=== PATIENT | male | born 1970 | race Caucasian/White ===

== ENCOUNTER 2018-06-18 03:20 | Inpatient (IN) | payer BC ==
[2018-06-18] MEDS ORDERED: Enoxaparin 150 MG/1 ML Syringe SUBCUT ONE (03:32)
[2018-06-18] MEDS ORDERED: Diltiazem 25 MG/5 ML SDV IVPUSH ONE ×3 (03:32→08:34)
[2018-06-18] MEDS ORDERED: Enoxaparin 150 MG/1 ML Syringe ONE (03:35)
--- NOTE | 2018-06-18 03:36 | EDM.PDOC ---
ED HPI GENERAL MEDICAL PROBLEM - General Chief Complaint: Cardiovascular Problem Stated Complaint: IRREGULAR HEARTBEAT Time Seen by Provider: 06/18/18 03:35 - History of Present Illness INITIAL COMMENTS - FREE TEXT/NARRATIVE: HISTORY AND PHYSICAL: History of present illness: Patient's 48-year-old white male with history of hypertension and presents with a concern of palpitations he denies chest pain shores breath nausea vomiting fever chills he states started approximately midnight Review of systems: As per history of present illness and below otherwise all systems reviewed and negative. Past medical history: As per history of present illness and as reviewed below otherwise noncontributory. Surgical history: As per history of present illness and as reviewed below otherwise noncontributory. Social history: No reported history of drug or alcohol abuse. Family history: As per history of present illness and as reviewed below otherwise noncontributory. Physical exam: HEENT: Atraumatic, normocephalic, pupils reactive, negative for conjunctival pallor or scleral icterus, mucous membranes moist, throat clear, neck supple, nontender, trachea midline. Lungs: Clear to auscultation, breath sounds equal bilaterally, chest nontender. Heart: S1S2, irregularly irregular with rate approximately 130 negative for clicks, rubs, or JVD. Abdomen: Soft, nondistended, nontender. Negative for masses or hepatosplenomegaly. Negative for costovertebral tenderness. Pelvis: Stable nontender. Genitourinary: Deferred. Rectal: Deferred. Extremities: Atraumatic, negative for cords or calf pain. Neurovascular unremarkable. Neuro: Awake, alert, oriented. Cranial nerves II through XII unremarkable. Cerebellum unremarkable. Motor and sensory unremarkable throughout. Exam nonfocal. Diagnostics: CBC CMP troponin PT/INR chest x-ray EKG Therapeutics: IV O2 monitor Cardizem 25 mg IV Lovenox milligram per kilogram subcutaneous Impression: #1 new onset atrial fibrillation with rapid ventricular response Definitive disposition and diagnosis as appropriate pending reevaluation and review of above. - Related Data Allergies Allergy/AdvReac Type Severity Reaction Status Date / Time No Known Allergies Allergy Verified 06/18/18 03:26 Home Meds: Home Meds Doxazosin Mesylate [Cardura] 4 mg PO DAILY 06/18/18 [History] Lisinopril/Hydrochlorothiazide [Lisinopril-Hctz 20-12.5 mg Tab] 2 each PO DAILY 06/18/18 [History] ED ROS GENERAL - Review of Systems Review Of Systems: ROS reveals no pertinent complaints other than HPI. ED EXAM, GENERAL - Physical Exam Exam: See Below (See dictation) Course - Vital Signs Last Recorded V/S: Last Vital Signs Temp 36.1 C 06/18/18 03:20 Pulse 73 06/18/18 03:50 Resp 18 06/18/18 03:50 BP 143/91 H 06/18/18 03:50 Pulse Ox 96 06/18/18 03:50 - Orders/Labs/Meds Orders: Active Orders 24 hr Category Date Time Status Cardiac Monitoring [RC] . DIRECTED Care 06/18/18 03:27 Active EKG Documentation Completion [RC] STAT Care 06/18/18 03:27 Active Labs: Laboratory Tests 06/18/18 06/18/18 06/18/18 Range/Units 03:30 03:30 03:30 WBC 9.10 (4.0-11.0) K/uL RBC 5.03 (4.50-5.90) M/uL Hgb 16.0 (13.0-17.0) g/dL Hct 46.0 (38.0-50.0) % MCV 91.5 (80.0-98.0) fL MCH 31.8 (27.0-32.0) pg MCHC 34.8 (31.0-37.0) g/dL RDW Std Deviation 41.9 (28.0-62.0) fl RDW Coeff of Bernardo 13 (11.0-15.0) % Plt Count 178 (150-400) K/uL MPV 10.80 (7.40-12.00) fL Neut % (Auto) 47.7 L (48.0-80.0) % Lymph % (Auto) 36.2 (16.0-40.0) % [place] % (Auto) 12.3 (0.0-15.0) % Eos % (Auto) 3.5 (0.0-7.0) % Baso % (Auto) 0.3 (0.0-1.5) % Neut # (Auto) 4.3 (1.4-5.7) K/uL Lymph # (Auto) 3.3 H (0.6-2.4) K/uL [place] # (Auto) 1.1 H (0.0-0.8) K/uL Eos # (Auto) 0.3 (0.0-0.7) K/uL Baso # (Auto) 0.0 (0.0-0.1) K/uL Nucleated RBC % 0.0 /100WBC Nucleated RBCs # 0 K/uL INR 1.03 Sodium 138 (136-148) mmol/L Potassium 3.3 L (3.5-5.1) mmol/L Chloride 102 (98-107) mmol/L Carbon Dioxide 30.1 (21.0-32.0) mmol/L BUN 16 (7.0-18.0) mg/dL Creatinine 1.2 (0.8-1.3) mg/dL Est Cr Clr Drug Dosing 91.93 mL/min Estimated GFR (MDRD) > 60.0 ml/min Glucose 100 (74-106) mg/dL Calcium 8.9 (8.5-10.1) mg/dL Troponin I < 0.050 (0.000-0.056) ng/mL Meds: Medications Discontinued Medications Generic Name Dose Route Start Last Admin Trade Name Freq PRN Reason Stop Dose Admin Diltiazem HCl 25 mg 06/18/18 03:32 06/18/18 03:39 Diltiazem IVPUSH 06/18/18 03:33 25 mg ONETIME ONE Administration Diltiazem HCl 25 mg 06/18/18 04:10 Diltiazem IVPUSH 06/18/18 04:11 ONETIME ONE Enoxaparin Sodium 150 mg 06/18/18 03:32 06/18/18 03:41 Lovenox SUBCUT 06/18/18 03:33 150 mg ONETIME ONE Administration Enoxaparin Sodium Confirm 06/18/18 03:35 06/18/18 03:41 Lovenox Administered 06/18/18 03:36 Not Given Dose 150 mg .ROUTE .STK-MED ONE Departure - Departure Time of Disposition: 04:12 Disposition: Admitted As Inpatient 68 Condition: Good Clinical Impression: Atrial fibrillation Referrals: Ac Bradley MD [Primary Care Provider] - Forms: ED Department Discharge - My Orders Last 24 Hours: My Active Orders 06/18/18 03:27 Cardiac Monitoring [RC] . DIRECTED EKG Documentation Completion [RC] STAT - Assessment/Plan Last 24 Hours: My Active Orders 06/18/18 03:27 Cardiac Monitoring [RC] . DIRECTED EKG Documentation Completion [RC] STAT
--- NOTE | 2018-06-18 03:54 | CR ---
INDICATION: Chest pain, shortness of breath TECHNIQUE: Chest radiograph 1 view COMPARISON: None FINDINGS: Severe degradation of image quality noted due to body habitus. Mediastinum: The mediastinum is normal in appearance. The heart silhouette is normal in size and morphology. Lung: Mild bibasilar atelectasis is present with very small lung volumes. No sign of pleural effusion seen. No pneumothorax is identified. Musculoskeletal: Unremarkable for age. IMPRESSION: 1. Mild bibasilar atelectasis is present with very small lung volumes. Dictated by Bobby Lima MD @ 06/18/2018 3:53:01 AM Dictated by: Bobby Lima MD @ 06/18/2018 03:53:04 (Electronically Signed)
[2018-06-18 04:00] LABS: CHLORIDE,CL 102 mmol/L (98-107); SODIUM,NA 138 mmol/L (136-148)
[2018-06-18] MEDS ORDERED: Acetaminophen 500 MG Tab PO ONE ×2 (04:20→04:21)
[2018-06-18] MEDS ORDERED: Potassium Chloride 20 MEQ Tab.ER PO ONE (05:58)
[2018-06-18] MEDS ORDERED: Ondansetron 4 MG Tab.DIS PO PRN (06:47)
[2018-06-18] MEDS ORDERED: Temazepam 15 MG Cap PO PRN (06:47)
[2018-06-18] MEDS ORDERED: Acetaminophen 325 MG Tab PO PRN (06:47)
[2018-06-18] MEDS ORDERED: Docusate Sodium 100 MG Cap PO PRN (06:47)
[2018-06-18] MEDS ORDERED: oxyCODONE 5 MG Tab PO PRN (06:47)
--- NOTE | 2018-06-18 06:50 | PCM.HP ---
H&P History of Present Illness - General Date of Service: 06/18/18 Admit Problem/Dx: Admission Diagnosis/Problem Admission Diagnosis/Problem Atrial fibrillation with RVR, New Onset Source of Information: Patient, Family History Limitations: Reports: No Limitations - History of Present Illness Initial Comments - Free Text/Narative: The patient is an otherwise healthy 48-year-old gentleman who has a history of hypertension and obstructive sleep apnea. He presented to the emergency department with a complaint of rapid, irregular heart rate. The patient does have a history of palpitations but no history of atrial fibrillation. The patient says that he was woken up approximately 3:00 in the morning with a feeling of rapid heart rate. He felt his pulse and it was irregular. The patient then had presented to the emergency department. He has no past history of atrial fibrillation. The patient has denied any dizziness. No lightheadedness. No fever or chills. He is also denied any chest pain. Onset of Symptoms: Reports: Sudden Symptom Onset Date: 06/18/18 Symptom Onset Time: 03:00 Duration of Symptoms: Reports: Hour(s):, Constant Location: Reports: Chest Improves with: Reports: None Worsens with: Reports: None Associated Symptoms: Reports: No Other Symptoms headache Pain Score (Numeric/FACES): 0 - Related Data Allergies/Adverse Reactions: Allergies Allergy/AdvReac Type Severity Reaction Status Date / Time No Known Allergies Allergy Verified 06/18/18 03:26 Home Medications: Home Meds Doxazosin Mesylate [Cardura] 4 mg PO DAILY 06/18/18 [History] Lisinopril/Hydrochlorothiazide [Lisinopril-Hctz 20-12.5 mg Tab] 2 each PO DAILY 06/18/18 [History] Past Medical History HEENT History: Reports: Sinusitis Cardiovascular History: Reports: Hypertension Respiratory History: Reports: Sleep Apnea Other Respiratory History: wears CPAP machine at home Gastrointestinal History: Reports: None Genitourinary History: Reports: Renal Calculus Musculoskeletal History: Reports: None Neurological History: Reports: None Psychiatric History: Reports: None Endocrine/Metabolic History: Reports: Obesity/BMI 30+ Hematologic History: Reports: None Immunologic History: Reports: None Oncologic (Cancer) History: Reports: None Dermatologic History: Reports: None - Infectious Disease History Infectious Disease History: Reports: None - Past Surgical History Other Cardiovascular Surgeries/Procedures: had a holter monitor 10 yrs ago Social & Family History - Family History Cardiac: Reports: Afib - Tobacco Use Smoking Status *Q: Light Tobacco Smoker Years of Tobacco use: 3 Packs/Tins Daily: 0 Used Tobacco, but Quit: No Second Hand Smoke Exposure: No - Alcohol Use Alcohol Use History: Yes Days Per Week of Alcohol Use: 2 Number of Drinks Per Day: 2 Total Drinks Per Week: 4 Date of Last Drink: 06/17/18 - Recreational Drug Use Recreational Drug Use: No - Living Situation & Occupation Living situation: Reports: , with Spouse Occupation: Employed H&P Review of Systems - Review of Systems: Review Of Systems: See Below General: Reports: No Symptoms HEENT: Reports: No Symptoms Pulmonary: Reports: No Symptoms Cardiovascular: Reports: Palpitations. Denies: Chest Pain, Lightheadedness, Blood Pressure Problem Gastrointestinal: Reports: No Symptoms Genitourinary: Reports: No Symptoms Musculoskeletal: Reports: No Symptoms Skin: Reports: No Symptoms Psychiatric: Reports: No Symptoms Neurological: Reports: No Symptoms Hematologic/Lymphatic: Reports: No Symptoms Immunologic: Reports: No Symptoms Exam - Exam Exam: See Below - Vital Signs Vital Signs: Last Vital Signs Temp 36.9 C 06/18/18 05:00 Pulse 92 06/18/18 04:30 Resp 20 06/18/18 06:00 BP 99/60 06/18/18 06:00 Pulse Ox 96 06/18/18 06:00 Weight: 151.545 kg - Exam Quality Assessment: No: Supplemental Oxygen General: Alert, Oriented, Cooperative HEENT: Conjunctiva Clear, EACs Clear, EOMI, Mucosa Moist & [place], Nares Patent, PERRLA Neck: Supple, Trachea Midline. No: JVD (Not able to assess due to neck size) Lungs: Clear to Auscultation, Normal Respiratory Effort Cardiovascular: Irregular Rhythm, Tachycardia. No: Regular Rate (147 on monitor ) GI/Abdominal Exam: Normal Bowel Sounds, Soft, Non-Tender, No Distention, Other ( Obese) (Male) Exam: Deferred Rectal (Males) Exam: Deferred Back Exam: Normal Inspection, Full Range of Motion Extremities: Normal Inspection, No Pedal Edema Skin: Warm, Dry, Intact Neurological: Cranial Nerves Intact, Normal Gait, Normal Speech Neuro Extensive - Mental Status: Alert, Oriented x3 Neuro Extensive - Motor, Sensory, Reflexes: CN II-XII Intact Psychiatric: Alert, Normal Affect, Normal Mood - Patient Data Lab Results Last 24 hrs: Laboratory Results - last 24 hr 06/18/18 06/18/18 06/18/18 Range/Units 03:30 03:30 03:30 WBC 9.10 (4.0-11.0) K/uL RBC 5.03 (4.50-5.90) M/uL Hgb 16.0 (13.0-17.0) g/dL Hct 46.0 (38.0-50.0) % MCV 91.5 (80.0-98.0) fL MCH 31.8 (27.0-32.0) pg MCHC 34.8 (31.0-37.0) g/dL RDW Std Deviation 41.9 (28.0-62.0) fl RDW Coeff of Bernardo 13 (11.0-15.0) % Plt Count 178 (150-400) K/uL MPV 10.80 (7.40-12.00) fL Neut % (Auto) 47.7 L (48.0-80.0) % Lymph % (Auto) 36.2 (16.0-40.0) % [place] % (Auto) 12.3 (0.0-15.0) % Eos % (Auto) 3.5 (0.0-7.0) % Baso % (Auto) 0.3 (0.0-1.5) % Neut # (Auto) 4.3 (1.4-5.7) K/uL Lymph # (Auto) 3.3 H (0.6-2.4) K/uL [place] # (Auto) 1.1 H (0.0-0.8) K/uL Eos # (Auto) 0.3 (0.0-0.7) K/uL Baso # (Auto) 0.0 (0.0-0.1) K/uL Nucleated RBC % 0.0 /100WBC Nucleated RBCs # 0 K/uL INR 1.03 Sodium 138 (136-148) mmol/L Potassium 3.3 L (3.5-5.1) mmol/L Chloride 102 (98-107) mmol/L Carbon Dioxide 30.1 (21.0-32.0) mmol/L BUN 16 (7.0-18.0) mg/dL Creatinine 1.2 (0.8-1.3) mg/dL Est Cr Clr Drug Dosing 91.93 mL/min Estimated GFR (MDRD) > 60.0 ml/min Glucose 100 (74-106) mg/dL Calcium 8.9 (8.5-10.1) mg/dL Magnesium (1.8-2.4) mg/dL Troponin I < 0.050 (0.000-0.056) ng/mL 06/18/18 Range/Units 03:35 WBC (4.0-11.0) K/uL RBC (4.50-5.90) M/uL Hgb (13.0-17.0) g/dL Hct (38.0-50.0) % MCV (80.0-98.0) fL MCH (27.0-32.0) pg MCHC (31.0-37.0) g/dL RDW Std Deviation (28.0-62.0) fl RDW Coeff of Bernardo (11.0-15.0) % Plt Count (150-400) K/uL MPV (7.40-12.00) fL Neut % (Auto) (48.0-80.0) % Lymph % (Auto) (16.0-40.0) % [place] % (Auto) (0.0-15.0) % Eos % (Auto) (0.0-7.0) % Baso % (Auto) (0.0-1.5) % Neut # (Auto) (1.4-5.7) K/uL Lymph # (Auto) (0.6-2.4) K/uL [place] # (Auto) (0.0-0.8) K/uL Eos # (Auto) (0.0-0.7) K/uL Baso # (Auto) (0.0-0.1) K/uL Nucleated RBC % /100WBC Nucleated RBCs # K/uL INR Sodium (136-148) mmol/L Potassium (3.5-5.1) mmol/L Chloride (98-107) mmol/L Carbon Dioxide (21.0-32.0) mmol/L BUN (7.0-18.0) mg/dL Creatinine (0.8-1.3) mg/dL Est Cr Clr Drug Dosing mL/min Estimated GFR (MDRD) ml/min Glucose (74-106) mg/dL Calcium (8.5-10.1) mg/dL Magnesium 1.9 (1.8-2.4) mg/dL Troponin I (0.000-0.056) ng/mL Result Diagrams: 06/18/18 03:30 06/18/18 03:30 - Problem List (1) Atrial fibrillation SNOMED Code(s): 58077594 ICD Code: I48.91 - UNSPECIFIED ATRIAL FIBRILLATION Status: Acute Priority : High Current Visit: Yes Qualifiers: Atrial fibrillation type: paroxysmal Qualified Code(s): I48.0 - Paroxysmal atrial fibrillation (2) Hypertension SNOMED Code(s): 60733976 ICD Code: I10 - ESSENTIAL (PRIMARY) HYPERTENSION Status: Chronic Priority : High Current Visit: Yes Qualifiers: Hypertension type: essential hypertension Qualified Code(s): I10 - Essential (primary) hypertension (3) Sleep apnea in adult SNOMED Code(s): 62311319 ICD Code: G47.30 - SLEEP APNEA, UNSPECIFIED Status: Chronic Priority: High Current Visit: Yes (4) Hypokalemia SNOMED Code(s): 47458128 ICD Code: E87.6 - HYPOKALEMIA Status: Acute Priority: High Current Visit: Yes (5) Obesity, Class III, BMI 40-49.9 (morbid obesity) SNOMED Code(s): 849031485, 050943188, [id number] ICD Code: E66.01 - MORBID (SEVERE) OBESITY DUE TO EXCESS CALORIES Status: Chronic Priority: High Current Visit: Yes Problem List Initiated/Reviewed/Updated: Yes Orders Last 24hrs: Active Orders 24 hr Category Date Time Status Patient Status [ADT] Stat ADT 06/18/18 04:14 Active Cardiac Monitoring [RC] CONTINUOUS Care 06/18/18 06:48 Ordered Oxygen Therapy [RC] PRN Care 06/18/18 06:48 Ordered Up ad Allison [RC] ASDIRECTED Care 06/18/18 06:47 Ordered VTE/DVT Education [RC] PER UNIT ROUTINE Care 06/18/18 06:48 Ordered Vital Signs [RC] Q4H Care 06/18/18 06:48 Ordered Heart Healthy Diet [DIET] Diet 06/18/18 Breakfast Ordered CBC WITH AUTO DIFF [HEME] AM Lab 06/19/18 05:11 Ordered COMPREHENSIVE METABOLIC PN,CMP [CHEM] AM Lab 06/19/18 05:11 Ordered Acetaminophen [Tylenol] Med 06/18/18 06:47 Ordered 650 mg PO Q4H PRN Docusate Sodium [Colace] Med 06/18/18 06:47 Ordered 100 mg PO BID PRN Doxazosin [Cardura] Med 06/18/18 09:00 Ordered 4 mg PO DAILY Enoxaparin [Lovenox] Med 06/19/18 07:00 Ordered 150 mg SUBCUT Q24H Lisinopril/Hydrochlorothiazide [Lisinopril-Hctz 20-12.5 Med 06/18/18 09:00 Ordered mg Tab] 2 each PO DAILY Ondansetron [Zofran ODT] Med 06/18/18 06:47 Ordered 4 mg PO Q4H PRN Temazepam [Restoril] Med 06/18/18 06:47 Ordered 15 mg PO BEDTIME PRN oxyCODONE Med 06/18/18 06:47 Ordered 5 mg PO Q4H PRN Resuscitation Status Routine Resus Stat 06/18/18 06:47 Ordered Medication Orders Doxazosin Mesylate (Cardura) 4 mg PO DAILY DORA Non-Formulary Medication (Lisinopril/Hydrochlorothiazide [Lisinopril-Hctz 20- 12.5 Mg Tab]) 2 each PO DAILY DORA Assessment/Plan Comment:: The patient is a 48-year-old gentleman who had an acute onset of atrial fibrillation with RVR and presented to the emergency department. The patient has been admitted to the intensive care unit. I've also ordered the patient to be maintained on telemetry. EICU has also been following patient. Single troponin thus far is undetectable and I've ordered 2 more timed troponin tests. The patient has been ordered to be started on a Cardizem drip to help his rate control as he has had heart rate greater than 140 bpm while on monitor during examination. The patient will be kept on his home medications for his hypertension and the patient will have his vital signs monitored every 4 hours. Cardiology has been consulted. The patient will also be kept on treatment dose of Lovenox at 150 mg subcutaneous daily. Upon discharge the patient will be transitioned to Eliquis and I have had a discussion with the risks benefits and alternatives of this. He is also to be maintained on a heart healthy diet. Anticipated the patient will be appropriate for discharge in 1-2 days.
[2018-06-18] MEDS ORDERED: Sodium Chloride 0.9% 100 ML ONE (06:57)
[2018-06-18] MEDS ORDERED: Diltiazem 100 MG in Sodium Chloride 0.9% 100 ML IV SCH ×2 (07:00→08:45)
[2018-06-18] MEDS ORDERED: Enoxaparin 150 MG/1 ML Syringe SUBCUT SCH (07:00)
[2018-06-18] MEDS: Sodium Chloride 0.9% 1,000 ML IV SCH ×2 (07:10→21:04)
[2018-06-18] MEDS: Hydrochlorothiazide 25 MG Tab PO SCH (09:12)
[2018-06-18] MEDS: Lisinopril 10 MG Tab PO SCH (09:12)
[2018-06-18] MEDS: Doxazosin 4 MG Tab PO SCH (09:13)
[2018-06-18 09:32] LABS: HEMOGLOBIN A1C 5.9 % (4.5-6.2)
[2018-06-18] MEDS: Magnesium Oxide 400 MG Tab PO SCH ×2 (09:49→21:03)
[2018-06-18] MEDS: Pantoprazole 40 MG Tab.CR PO SCH (09:49)
[2018-06-18] MEDS ORDERED: Ketorolac 30 MG/ML SDV IVPUSH ONE (11:11)
[2018-06-18] MEDS ORDERED: Apixaban 5 MG Tab PO SCH (12:15)
[2018-06-18] MEDS: Diltiazem 180 MG Cap.CD PO SCH (12:43)
--- NOTE | 2018-06-18 14:11 | CONS ---
DATE OF CONSULTATION: 06/18/2018 DATE OF : 1970 PRIMARY CARE PHYSICIAN: Ac Bradley MD REASON FOR CONSULTATION: New onset of atrial fibrillation. HISTORY OF PRESENT ILLNESS: This is a 48-year-old male with history of hypertension, obesity, sleep apnea using CPAP, history of some tobacco use in the past, so he was presenting to the hospital due to heart palpitations started this morning. Yesterday, he was drinking beer, three beers during the daytime and he drank another three cocktails before he going to bed. Then, he woke up around 2:00 a.m. with palpitation, heart racing. He denies sweating, chest pain, chest heaviness, or tightness. He feels like he could not get enough air. He felt heart racing at that time. He felt so concerned and then he came to the emergency room. In the emergency room, he was given with the medication, Lovenox 150 mg subcutaneous x1 as well as Diltiazem IV push x2 and then IV drip was started, and vital signs when he just got in with a blood pressure of 168/114, and the heart rate of 112 to 120, O2 saturation is 94 on room air, respiration rate is 21, temperature 37.4, and he got Cardizem IV drip started. PAST MEDICAL HISTORY: Sleep apnea, using CPAP machine; hypertension; impaired glucose level; obesity. SOCIAL HISTORY: History of tobacco use in the past. He drinks socially. No drug use. FAMILY HISTORY: His dad has history of hypertension. His mother has history of atrial fibrillation as well as pacemaker, . Two of his children has history of diabetes. ALLERGIES: No known drug allergies. MEDICATIONS: Home medications includin. Lisinopril/hydrochlorothiazide. 2. Doxazosin. REVIEW OF SYSTEMS: Except indicated HPI, otherwise has been negative. PHYSICAL EXAMINATION: VITAL SIGNS: Initial blood pressure was 168/114, it is improving to 119/78; heart rate of 120 right now, it is hanging around 100 to 120; O2 saturation with IV Cardizem drip at 10 mg/hour; O2 saturation 94 to 195 on room air; temperature 97.4; respiration rate is 20. HEENT: No pale. No jaundice. No JVD. HEART: Normal S1 and S2. Totally irregular. LUNGS: Clear bilaterally. No wheezing. ABDOMEN: Soft, nontender. Bowel sounds are present. No hepatosplenomegaly. No rebound tenderness. No guarding. EXTREMITIES: Legs, no edema. No tenderness as well. LABORATORY INVESTIGATION: CBC showed WBC 9, hematocrit of 46, hemoglobin of 16, platelets 178. INR 1.03. Sodium 138, potassium 3.3, chloride 102, bicarb 30, BUN 16, creatinine 1.2, glucose 5.9. Troponin was negative x2. TSH is 2.8. EKG, June 18, 2018, atrial fibrillation, heart rate of 124, QRS duration 107. ASSESSMENT AND PLAN: This is a 48-year-old male with history of obesity, hypertension, sleep apnea using CPAP. He was presented with atrial fibrillation with rapid ventricular response. Currently, heart rate is improving, but still needs to be better controlled. I will switch from IV drip to p.o. Cardizem CD 360, and continue cycling and cardiac troponin. His TSH was normal at 2.88. I will check a D- dimer. His new onset atrial fibrillation could be from uncontrolled high blood pressure as well as alcoholic consumption. He had a CPAP machine adjusted recently. An echocardiogram was already ordered. We will check a D-dimer to rule out a PE as well. We will also start him on Eliquis five twice a day. His CHADS-VASc score currently is 1 including hypertension. I explained to him about the risks of stroke from atrial fibrillation and for possible cardioversion. GABRIEL / ADELINE /[id number]
[2018-06-18] MEDS: Apixaban 5 MG Tab PO SCH (17:31)
[2018-06-19] MEDS: Apixaban 5 MG Tab PO SCH (05:25)
[2018-06-19 07:11] LABS: CHLORIDE,CL 105 mmol/L (98-107); SODIUM,NA 139 mmol/L (136-148)
--- NOTE | 2018-06-19 07:37 | PCM.DCSUM1 ---
Discharge Summary - Hospital Course HPI Initial Comments: Admitted to intensive care unit on Cardizem drip secondary to atrial fibrillation with RVR. New-onset. Diagnosis: Stroke: No - Discharge Data Discharge Date: 06/19/18 Discharge Disposition: Home, Self-Care 01 Condition: Good - Discharge Diagnosis/Problem(s) (1) Atrial fibrillation SNOMED Code(s): 31692483 ICD Code: I48.91 - UNSPECIFIED ATRIAL FIBRILLATION Status: Acute Priority : High Qualifiers: Atrial fibrillation type: paroxysmal Qualified Code(s): I48.0 - Paroxysmal atrial fibrillation (2) Hypertension SNOMED Code(s): 39684725 ICD Code: I10 - ESSENTIAL (PRIMARY) HYPERTENSION Status: Chronic Priority : High Qualifiers: Hypertension type: essential hypertension Qualified Code(s): I10 - Essential (primary) hypertension (3) Sleep apnea in adult SNOMED Code(s): 22426213 ICD Code: G47.30 - SLEEP APNEA, UNSPECIFIED Status: Chronic Priority: High (4) Hypokalemia SNOMED Code(s): 62479781 ICD Code: E87.6 - HYPOKALEMIA Status: Resolved Priority: High (5) Obesity, Class III, BMI 40-49.9 (morbid obesity) SNOMED Code(s): 602668893, 829944482, 46296706465731 ICD Code: E66.01 - MORBID (SEVERE) OBESITY DUE TO EXCESS CALORIES Status: Chronic Priority: High - Patient Summary/Data Consults: Consultations 06/18/18 09:10 Consult to Physician [CONS] Routine Hospital Course: The patient is an otherwise healthy 48-year-old gentleman who has a history of hypertension and obstructive sleep apnea. He presented to the emergency department with a complaint of rapid, irregular heart rate. The patient does have a history of palpitations but no history of atrial fibrillation. The patient says that he was woken up approximately 3:00 in the morning with a feeling of rapid heart rate. He felt his pulse and it was irregular. The patient was initially admitted to intensive care unit and placed on Cardizem drip. The patient's initial pulse and ranged from 120-147 bpm. The patient achieved rate control with his average pulse less than 100 bpm. The patient was also consulted by cardiology and upon evaluation of the patient recommended that Cardizem drip be discontinued and the patient was placed on Cardizem CD 360 mg to take 1 by mouth daily. A long discussion was held with the patient with regards to anticoagulation and was recommended that he start on Eliquis 5 mg by mouth twice a day. Later in the day the patient had converted to normal sinus rhythm. His rate had been controlled. The patient also had 3 troponins which are noted to be undetectable. EKG obtained also confirmed normal sinus rhythm. The patient had been recommended to continue with his current heart healthy diet as tolerated. He is also to have activity as tolerated. He is to follow-up with his primary care physician as well as cardiology as scheduled. The patient has been hemodynamically stable and he is discharged from acute hospitalization with the recommendations listed above. - Patient Instructions Diet: Heart Healthy Diet Activity: As Tolerated - Discharge Plan *PRESCRIPTION DRUG MONITORING PROGRAM REVIEWED*: No *COPY OF PRESCRIPTION DRUG MONITORING REPORT IN PATIENT OLIVIER: No Prescriptions/Med Rec: Apixaban [Eliquis] 5 mg PO Q12H #60 tablet Diltiazem [Cardizem CD] 360 mg PO DAILY #30 cap.er Home Medications: Home Meds Doxazosin Mesylate [Cardura] 4 mg PO DAILY 06/18/18 [History] Lisinopril/Hydrochlorothiazide [Lisinopril-Hctz 20-12.5 mg Tab] 2 each PO DAILY 06/18/18 [History] Apixaban [Eliquis] 5 mg PO Q12H #60 tablet 06/19/18 [Rx] Diltiazem [Cardizem CD] 360 mg PO DAILY #30 cap.er 06/19/18 [Rx] Oxygen Therapy Mode: Room Air Patient Handouts: Diltiazem extended-release capsules or tablets, Hypertension , [id number], Apixaban oral tablets, Atrial Fibrillation, [id number] Referrals: [facility] [Outside] Flaca Moses MD [Physician] - Ac Bradley MD [Primary Care Provider] - - Discharge Summary/Plan Comment DC Time >30 min.: Yes - General Info Date of Service: 06/19/18 Admission Dx/Problem (Free Text: Admission Diagnosis/Problem Admission Diagnosis/Problem Atrial fibrillation with RVR, New Onset Functional Status: Reports: Pain Controlled - Review of Systems General: Reports: No Symptoms HEENT: Reports: No Symptoms Pulmonary: Reports: No Symptoms Cardiovascular: Reports: No Symptoms Gastrointestinal: Reports: No Symptoms Genitourinary: Reports: No Symptoms Musculoskeletal: Reports: No Symptoms Skin: Reports: No Symptoms Neurological: Reports: No Symptoms Psychiatric: Reports: No Symptoms - Patient Data Vitals - Most Recent: Last Vital Signs Temp 36.4 C 06/19/18 04:00 Pulse 53 L 06/19/18 05:00 Resp 16 06/19/18 05:00 BP 102/56 L 06/19/18 05:00 Pulse Ox 94 L 06/19/18 05:00 Weight - Most Recent: 151.545 kg I&O - Last 24 hours: Intake & Output 06/18/18 06/19/18 06/19/18 22:59 06:59 14:59 Intake Total 1485 Balance 1485 Lab Results - Last 24 hrs: Laboratory Results - last 24 hr 06/18/18 06/18/18 06/18/18 Range/Units 08:16 08:16 08:16 WBC (4.0-11.0) K/uL RBC (4.50-5.90) M/uL Hgb (13.0-17.0) g/dL Hct (38.0-50.0) % MCV (80.0-98.0) fL MCH (27.0-32.0) pg MCHC (31.0-37.0) g/dL RDW Std Deviation (28.0-62.0) fl RDW Coeff of Bernardo (11.0-15.0) % Plt Count (150-400) K/uL MPV (7.40-12.00) fL Neut % (Auto) (48.0-80.0) % Lymph % (Auto) (16.0-40.0) % [place] % (Auto) (0.0-15.0) % Eos % (Auto) (0.0-7.0) % Baso % (Auto) (0.0-1.5) % Neut # (Auto) (1.4-5.7) K/uL Lymph # (Auto) (0.6-2.4) K/uL [place] # (Auto) (0.0-0.8) K/uL Eos # (Auto) (0.0-0.7) K/uL Baso # (Auto) (0.0-0.1) K/uL Nucleated RBC % /100WBC Nucleated RBCs # K/uL D-Dimer, Quantitative (0.0-0.50) mg/L FEU Sodium (136-148) mmol/L Potassium 4.3 (3.5-5.1) mmol/L Chloride (98-107) mmol/L Carbon Dioxide (21.0-32.0) mmol/L BUN (7.0-18.0) mg/dL Creatinine (0.8-1.3) mg/dL Est Cr Clr Drug Dosing mL/min Estimated GFR (MDRD) ml/min Glucose (74-106) mg/dL Hemoglobin A1c (4.5-6.2) % Calcium (8.5-10.1) mg/dL Phosphorus 3.4 (2.6-4.7) mg/dL Total Bilirubin (0.2-1.0) mg/dL AST (15-37) IU/L ALT (14-63) IU/L Alkaline Phosphatase (46-116) U/L Troponin I < 0.050 (0.000-0.056) ng/mL Total Protein (6.4-8.2) g/dL Albumin (3.4-5.0) g/dL Globulin (2.6-4.0) g/dL Albumin/Globulin Ratio (0.9-1.6) Triglycerides (0-200) mg/dL Cholesterol (50-200) mg/dL LDL Cholesterol, Calc (60-180) mg/dL VLDL Cholesterol (5-55) mg/dL HDL Cholesterol (40-60) mg/dL Cholesterol/HDL Ratio (3.3-6.0) TSH 3rd Generation 2.88 (0.36-3.74) uIU/mL 06/18/18 06/18/18 06/18/18 Range/Units 08:16 14:22 14:22 WBC (4.0-11.0) K/uL RBC (4.50-5.90) M/uL Hgb (13.0-17.0) g/dL Hct (38.0-50.0) % MCV (80.0-98.0) fL MCH (27.0-32.0) pg MCHC (31.0-37.0) g/dL RDW Std Deviation (28.0-62.0) fl RDW Coeff of Bernardo (11.0-15.0) % Plt Count (150-400) K/uL MPV (7.40-12.00) fL Neut % (Auto) (48.0-80.0) % Lymph % (Auto) (16.0-40.0) % [place] % (Auto) (0.0-15.0) % Eos % (Auto) (0.0-7.0) % Baso % (Auto) (0.0-1.5) % Neut # (Auto) (1.4-5.7) K/uL Lymph # (Auto) (0.6-2.4) K/uL [place] # (Auto) (0.0-0.8) K/uL Eos # (Auto) (0.0-0.7) K/uL Baso # (Auto) (0.0-0.1) K/uL Nucleated RBC % /100WBC Nucleated RBCs # K/uL D-Dimer, Quantitative < 0.19 (0.0-0.50) mg/L FEU Sodium (136-148) mmol/L Potassium (3.5-5.1) mmol/L Chloride (98-107) mmol/L Carbon Dioxide (21.0-32.0) mmol/L BUN (7.0-18.0) mg/dL Creatinine (0.8-1.3) mg/dL Est Cr Clr Drug Dosing mL/min Estimated GFR (MDRD) ml/min Glucose (74-106) mg/dL Hemoglobin A1c 5.9 (4.5-6.2) % Calcium (8.5-10.1) mg/dL Phosphorus (2.6-4.7) mg/dL Total Bilirubin (0.2-1.0) mg/dL AST (15-37) IU/L ALT (14-63) IU/L Alkaline Phosphatase (46-116) U/L Troponin I < 0.050 (0.000-0.056) ng/mL Total Protein (6.4-8.2) g/dL Albumin (3.4-5.0) g/dL Globulin (2.6-4.0) g/dL Albumin/Globulin Ratio (0.9-1.6) Triglycerides (0-200) mg/dL Cholesterol (50-200) mg/dL LDL Cholesterol, Calc (60-180) mg/dL VLDL Cholesterol (5-55) mg/dL HDL Cholesterol (40-60) mg/dL Cholesterol/HDL Ratio (3.3-6.0) TSH 3rd Generation (0.36-3.74) uIU/mL 06/19/18 06/19/18 Range/Units 06:02 06:02 WBC 6.86 (4.0-11.0) K/uL RBC 4.50 (4.50-5.90) M/uL Hgb 14.1 (13.0-17.0) g/dL Hct 41.7 (38.0-50.0) % MCV 92.7 (80.0-98.0) fL MCH 31.3 (27.0-32.0) pg MCHC 33.8 (31.0-37.0) g/dL RDW Std Deviation 43.3 (28.0-62.0) fl RDW Coeff of Bernardo 13 (11.0-15.0) % Plt Count 182 (150-400) K/uL MPV 11.10 (7.40-12.00) fL Neut % (Auto) 51.3 (48.0-80.0) % Lymph % (Auto) 32.8 (16.0-40.0) % [place] % (Auto) 10.1 (0.0-15.0) % Eos % (Auto) 5.2 (0.0-7.0) % Baso % (Auto) 0.6 (0.0-1.5) % Neut # (Auto) 3.5 (1.4-5.7) K/uL Lymph # (Auto) 2.3 (0.6-2.4) K/uL [place] # (Auto) 0.7 (0.0-0.8) K/uL Eos # (Auto) 0.4 (0.0-0.7) K/uL Baso # (Auto) 0.0 (0.0-0.1) K/uL Nucleated RBC % 0.0 /100WBC Nucleated RBCs # 0 K/uL D-Dimer, Quantitative (0.0-0.50) mg/L FEU Sodium 139 (136-148) mmol/L Potassium 4.2 (3.5-5.1) mmol/L Chloride 105 (98-107) mmol/L Carbon Dioxide 24.7 (21.0-32.0) mmol/L BUN 19 H (7.0-18.0) mg/dL Creatinine 1.1 (0.8-1.3) mg/dL Est Cr Clr Drug Dosing 100.29 mL/min Estimated GFR (MDRD) > 60.0 ml/min Glucose 109 H (74-106) mg/dL Hemoglobin A1c (4.5-6.2) % Calcium 8.5 (8.5-10.1) mg/dL Phosphorus (2.6-4.7) mg/dL Total Bilirubin 0.3 (0.2-1.0) mg/dL AST 11 L (15-37) IU/L ALT 41 (14-63) IU/L Alkaline Phosphatase 69 (46-116) U/L Troponin I (0.000-0.056) ng/mL Total Protein 6.2 L (6.4-8.2) g/dL Albumin 3.1 L (3.4-5.0) g/dL Globulin 3.1 (2.6-4.0) g/dL Albumin/Globulin Ratio 1.0 (0.9-1.6) Triglycerides 209 H (0-200) mg/dL Cholesterol 199 (50-200) mg/dL LDL Cholesterol, Calc 122 (60-180) mg/dL VLDL Cholesterol 41 (5-55) mg/dL HDL Cholesterol 35 L (40-60) mg/dL Cholesterol/HDL Ratio 5.7 (3.3-6.0) TSH 3rd Generation (0.36-3.74) uIU/mL Med Orders - Current: Current Medications Acetaminophen (Tylenol) 650 mg PO Q4H PRN PRN Reason: Pain (Mild 1-3)/fever Apixaban (Eliquis) 5 mg PO Q12H [facility] Last Admin: 06/19/18 05:25 Dose: 5 mg Diltiazem HCl (Cardizem Cd) 360 mg PO DAILY [facility] Last Admin: 06/18/18 12:43 Dose: 360 mg Docusate Sodium (Colace) 100 mg PO BID PRN PRN Reason: Constipation Doxazosin Mesylate (Cardura) 4 mg PO DAILY [facility] Last Admin: 06/18/18 09:13 Dose: Not Given Hydrochlorothiazide (Hydrochlorothiazide) 25 mg PO DAILY [facility] Last Admin: 06/18/18 09:12 Dose: Not Given Diltiazem HCl 100 mg/ Sodium (Chloride) 100 mls @ 5 mls/hr IV NOW [facility]; Protocol Last Titration: 06/18/18 17:00 Dose: 0 mg/hr, 0 mls/hr Sodium Chloride (Normal Saline) 1,000 mls @ 75 mls/hr IV ASDIRECTED [facility] Last Admin: 06/18/18 21:04 Dose: 75 mls/hr Lisinopril (Prinivil) 40 mg PO DAILY [facility] Last Admin: 06/18/18 09:12 Dose: Not Given Magnesium Oxide (Magnesium Oxide) 400 mg PO BID [facility] Last Admin: 06/18/18 21:03 Dose: 400 mg Ondansetron HCl (Zofran Odt) 4 mg PO Q4H PRN PRN Reason: nausea, able to take PO Oxycodone HCl (Oxycodone) 5 mg PO Q4H PRN PRN Reason: Pain (moderate 4-6) Pantoprazole Sodium (Protonix) 40 mg PO DAILY [facility] Last Admin: 06/18/18 09:49 Dose: 40 mg Temazepam (Restoril) 15 mg PO BEDTIME PRN PRN Reason: Sleep Discontinued Medications Acetaminophen (Tylenol Extra Strength) 1,000 mg PO ONETIME ONE Stop: 06/18/18 04:21 Last Admin: 06/18/18 04:29 Dose: 1,000 mg Acetaminophen (Tylenol Extra Strength) 1,000 mg PO ONETIME ONE Stop: 06/18/18 04:22 Last Admin: 06/18/18 04:24 Dose: Not Given Apixaban (Eliquis) 5 mg PO Q12H [facility] Last Admin: 06/18/18 12:31 Dose: Not Given Diltiazem HCl (Diltiazem) 25 mg IVPUSH ONETIME ONE Stop: 06/18/18 03:33 Last Admin: 06/18/18 03:39 Dose: 25 mg Diltiazem HCl (Diltiazem) 25 mg IVPUSH ONETIME ONE Stop: 06/18/18 04:11 Last Admin: 06/18/18 04:14 Dose: 25 mg Diltiazem HCl (Diltiazem) 5 mg IVPUSH ONETIME ONE; Protocol Stop: 06/18/18 08:35 Last Admin: 06/18/18 08:47 Dose: 5 mg Enoxaparin Sodium (Lovenox) 150 mg SUBCUT ONETIME ONE Stop: 06/18/18 03:33 Last Admin: 06/18/18 03:41 Dose: 150 mg Enoxaparin Sodium (Lovenox) Confirm Administered Dose 150 mg .ROUTE .STK-MED ONE Stop: 06/18/18 03:36 Last Admin: 06/18/18 03:41 Dose: Not Given Enoxaparin Sodium (Lovenox) 150 mg SUBCUT Q24H [facility] Last Admin: 06/18/18 07:14 Dose: Not Given Sodium Chloride (Normal Saline) Confirm Administered Dose 100 mls @ as directed .ROUTE .STK-MED ONE Stop: 06/18/18 06:58 Last Admin: 06/18/18 07:14 Dose: Not Given Ketorolac Tromethamine (Toradol) 30 mg IVPUSH ONETIME ONE Stop: 06/18/18 11:12 Last Admin: 06/18/18 12:43 Dose: 30 mg Potassium Chloride (Klor-Con M20) 40 meq PO ONETIME ONE Stop: 06/18/18 05:59 Last Admin: 06/18/18 06:10 Dose: 40 meq - Exam Quality Assessment: Denies: Supplemental Oxygen General: Reports: Alert, Oriented, Cooperative, No Acute Distress HEENT: Reports: Pupils Equal, Pupils Reactive, EOMI Neck: Reports: Supple, Trachea Midline Lungs: Reports: Clear to Auscultation, Normal Respiratory Effort Cardiovascular: Reports: Regular Rate, Regular Rhythm GI/Abdominal Exam: Normal Bowel Sounds, Soft, Non-Tender, No Distention (Male) Exam: Deferred Rectal (Males) Exam: Deferred Back Exam: Reports: Normal Inspection, Full Range of Motion Extremities: Normal Inspection, Normal Range of Motion, No Pedal Edema Skin: Reports: Warm, Dry, Intact Neurological: Reports: No New Focal Deficit, Normal Gait Psy/Mental Status: Reports: Alert, Normal Affect, Normal Mood
[2018-06-19] MEDS: Diltiazem 180 MG Cap.CD PO SCH (09:06)
[2018-06-19] MEDS: Lisinopril 10 MG Tab PO SCH (09:07)
[2018-06-19] MEDS: Magnesium Oxide 400 MG Tab PO SCH (09:07)
[2018-06-19] MEDS: Doxazosin 4 MG Tab PO SCH (09:07)
[2018-06-19] MEDS: Hydrochlorothiazide 25 MG Tab PO SCH (09:08)
[2018-06-19] MEDS: Pantoprazole 40 MG Tab.CR PO SCH (09:08)
== END 2018-06-19 10:40 | disposition home or self-care (01) | DRG 201 ==
LOC: MW.ED 03:20 → MW.ICU 04:14
PROVIDERS: ADMIT Internal Medicine; ATTEND Internal Medicine
DX: I48.91 Unspecified atrial fibrillation (principal); E88.81 Metabolic syndrome and other insulin resistance; E66.01 Morbid (severe) obesity due to excess calories; Z68.41 Body mass index [BMI] 40.0-44.9, adult; I10 Essential (primary) hypertension; E87.6 Hypokalemia; F17.200 Nicotine dependence, unspecified, uncomplicated; G47.33 Obstructive sleep apnea (adult) (pediatric); Z79.899 Other long term (current) drug therapy; Z87.442 Personal history of urinary calculi
CPT/HCPCS: 36415; 71045; 71045-26; 80048; 80053; 80061; 83036; 83735; 84100; 84132; 84443; 84484; 85025; 85379; 85610; 93005; 93306; 96372; 96374; 96376; 99283; 99285-25; A9270-GY; J1650; J1885; J3490; J7030; J7040

== ENCOUNTER 2022-06-16 06:48 | Day surgery (SDC) | payer BC ==
[~2022-06-16 06:48] MED LIST: Lactated Ringers 1,000 ML IV SCH
[2022-06-16] MEDS ORDERED: Propofol 200 MG/20 ML SDV ONE (07:38)
[2022-06-16] MEDS ORDERED: Lidocaine 2% 5 ML SDV ONE (07:38)
[2022-06-16] MEDS ORDERED: Lactated Ringers 1,000 ML IV SCH (08:15)
== END 2022-06-16 08:36 | disposition home or self-care (01) ==
LOC: MW.SDS 06:48
PROVIDERS: ATTEND Surgery
DX: Z12.11 Encounter for screening for malignant neoplasm of colon (principal); I48.91 Unspecified atrial fibrillation; I10 Essential (primary) hypertension; G47.30 Sleep apnea, unspecified; E66.01 Morbid (severe) obesity due to excess calories; Z79.899 Other long term (current) drug therapy; Z79.82 Long term (current) use of aspirin; Z98.890 Other specified postprocedural states; Z87.891 Personal history of nicotine dependence
CPT/HCPCS: 45378; J2704; J7120; J3490